=== PATIENT | male | born 1980 ===

== ENCOUNTER 2019-10-04 04:38 | Emergency (ER) | payer SELFPAY ==
[~2019-10-04] VITALS: Ht 170.2 cm; Wt 107.0 kg
[2019-10-04 04:40] VITALS: BP 106/61
--- NOTE | 2019-10-04 04:50 | NUR ---
Patient BIB [facility] from [facility] with no medical complaints. Patient was found in the bathroom asleep on the floor. +ETOH. Patient states he was "just having fun." Per EMS, patient was unable to ambulate. Patient is AAOx4, GCS 15. Patient is in NAD. Respirations even and unlabored.
--- NOTE | 2019-10-04 04:50 | NUR ---
Report received and care assumed. Pt A&Ox4 but very drowsy. Denies medical complaints. Pulse ox monitoring in place. Call light in reach and fall risk discussed--pt verbalizes understanding.
--- NOTE | 2019-10-04 04:50 | NUR ---
Report given to DOUGLAS Lua.
--- NOTE | 2019-10-04 05:09 | NUR ---
Pt up to BR with steady gait. Pt requesting to leave. Discussed with provider. Ok to d/c. Pt ambulates with stead gait. Triage VSS. Remains A&Ox4. Continues to deny medical complaints. Taxi voucher given and pt walked to d/c desk.
== END 2019-10-04 05:15 | disposition home or self-care (01) ==
LOC: ED 05:12
DX: F10.120 Alcohol abuse with intoxication, uncomplicated (principal)
CPT/HCPCS: 99283